=== PATIENT | female | born 2000 ===

== ENCOUNTER 2025-09-06 11:32 | Emergency (ER) | payer SELFPAY ==
--- NOTE | 2025-09-06 11:35 | ED_ITS ---
HPI - Female Genitourinary General Chief complaint: Urogenital-Female Stated complaint: Urinary Problem Time Seen by Provider: 09/06/25 11:34 Source: patient Mode of arrival: ambulatory Limitations: no limitations History of Present Illness HPI Narrative: Adelina is a 25 year old female patient presenting to the clinic today with c/o possible UTI. She reports she is having some burning with urination at the end of her stream, urinary frequency, white/yellow vaginal discharge with moldy odor. This has been going on and off x 1 year. LMP was August 12. No concern for or STI. Has not had intercourse for approx 1 month. Partner was transgender- female to male. States they used toys. denies any fevers, chills, body aches. She has recently changed her detergents. History of ovarian cyst. Related Data Allergies Allergy/AdvReac Type Severity Reaction Status Date / Time lactose Allergy Intermediate Abdominal Verified 09/06/25 11:46 Pain Review of Systems Review of Systems: Pertinent positives per HPI. Patient denies any fever, chills, rash, headache, visual changes, dizziness, cough, shortness of breath, chest pain, palpitations, nausea, vomiting, diarrhea, constipation, abdominal pain PMFSH Comments At the time of my signature, I reviewed and agree with the nursing past medical, surgical, social, and family history. There is no relevant family history pertinent to the patient complaint. Exam Narrative: General: Well-developed, well nourished, in no apparent distress. Head: Normocephalic, atraumatic. Cardio: Regular rate and rhythm, s1 and s2 normal, no murmur appreciated. Resp: Clear to auscultation bilaterally, no rhonchi, rales, wheezing or rubs. Abdomen: Soft, pliable, bowel sounds present in all quadrants, suprapubic abdomen tender to palpation, no organomegly, left CVAT tenderness. Course Course Emergency Course: Portions of this record may have been created with voice recognition software. Level of Care: Express Care Visit Vital Signs Vital signs: Vital Signs Temperature 37.3 C 09/06/25 11:41 Pulse Rate 82 09/06/25 11:41 Respiratory Rate 16 09/06/25 11:41 Blood Pressure 149/88 H 09/06/25 11:41 Pulse Oximetry 100 09/06/25 11:41 Oxygen Delivery Room Air 09/06/25 11:41 Temperature 37.3 C 09/06/25 11:41 Pulse Rate 82 09/06/25 11:41 Respiratory Rate 16 09/06/25 11:41 Blood Pressure 149/88 H 09/06/25 11:41 Pulse Oximetry 100 09/06/25 11:41 Oxygen Delivery Room Air 09/06/25 11:41 Vital signs reviewed MDM - Female Genitourinary MDM Narrative Medical decision making narrative: At the time of visit patient is resting comfortably on the exam table. Patient appears to be nontoxic. C/o possible UTI. She reports she is having some burning with urination at the end of her stream, urinary frequency, white/yellow vaginal discharge with moldy odor. This has been going on and off x 1 year. LMP was August 12. No concern for or STI. Has not had intercourse for approx 1 month. Partner was transgender- female to male. States they used toys. Denies any fevers, chills, body aches. She has recently changed her detergents. History of ovarian cyst in the past. On exam patient has soft, pliable, nondistended abdomen with mild suprapubic tenderness and left-sided lower back tenderness, bowel sounds present all 4 quadrants, no organomegaly Labs: Urinalysis shows trace of protein. Negative for leukocytes or blood. Plan: I suspect patient has bacterial vaginosis. Patient does not have any insurance so she does not wish to have further testing at this time. Will send in prescription for Metrogel.Supportive measures were discussed with the patient and they voiced understanding discharge instructions and agrees to treatment plan. Return precautions reviewed Differential Diagnosis Differential diagnosis: Likely urinary tract infection, bacterial vaginosis, trichomoniasis, cervicitis, ovarian cyst, vaginitis and cystitis Lab Data Labs: Lab Results 09/06/25 Range/Units 11:53 POC Urine Color Yellow POC Urine Clarity Clear POC Urine pH 6.5 POC Ur Specif [place] 1.025 POC Urine Protein Trace (Negative) POC Ur Glucose (UA) Negative (Negative) POC Urine Ketones Negative (Negative) POC Urine Blood Negative (Negative) POC Urine Nitrite Negative (Negative) POC Urine Bilirubin Negative (Negative) POC Urine Urobilinogen 0.2 POC U Leukocyte Esteras Negative (Negative) Discharge Plan Discharge Clinical Impression: Bacterial vaginosis Patient Disposition: Home Condition: Stable Instructions: Antibiotic Form, Bacterial Vaginosis (ED) Additional Instructions: Urine shows no sign of infection Take metronidazole as prescribed Increase fluids and stay well hydrated. May take tylenol/motrin for pain. May use OTC monistat as needed for vaginal yeast infection Avoid intercourse until infection resolved. Follow up with your PCP in 5-7 days if symptoms worsen Patient Language: Portuguese Prescriptions: New metronidazole [Vandazole] 0.75 % (37.5mg/5 gram) gel 1 appful vaginal HS 5 Days Qty: 70 0RF Follow-up/Referrals: UNKNOWN,DOCTOR [Non-Staff] Time of Disposition: 12:00 Quality NIHSS Nursing Documentation ED NIHSS nursing documentation: reviewed/agree
--- OUTSIDE RECORDS SUMMARY | 2025-09-06 11:35 | XMS_ITS | Clinical Summary ---
Author Organization [facility] Address [address] [place] [address] Care Team Providers Care Therapist Radiation Name Role Phone Jamari Espinal MD Primary Care Provider + Allergies Active Allergy Reactions Criticality Noted Date Comments Lactase Other (See comments) Low 12/26/2017 Stomach irritation and pain Medications lamoTRIgine (LaMICtal) 100 mg tabletIndicatio ns:Bipolar affective disorder, currently depressed, moderate (HCC) Take 0.5 tablets (50 mg total) by mouth daily for 14 days, THEN 1 tablet (100 mg total) daily for 14 days. 21 tablet 3 Active propranoloL (INDERAL) 10 mg tabletIndicatio ns:Palpitations ,Anxiety TAKE 1/2 TO 1 TABLET(5 TO 10 MG) BY MOUTH THREE TIMES DAILY NEEDED FOR ANXIETY 90 tablet 3 Active Additional Information Patient taking differently: 10 mg oral 3 times daily PRN, anxiety, Just as needed, Indications: anxiety, Informant: Self, Reported on 01/15/2024 ARIPiprazole (ABILIFY) 20 mg tabletIndicatio ns:Bipolar affective disorder, currently depressed, moderate (HCC) Take 1 tablet (20 mg total) by mouth daily 90 tablet 1 3 Active Additional Information Patient taking differently:20 mg oralDaily (early AM), Indications: Bipolar Disorder, Depression Treatment Adjunct, Informant: Self, Reported on 01/15/[address] (Cymbalta) 60 mg capsuleIndicati ons:Bipolar affective disorder, currently depressed, moderate (HCC),Anxiety Take 1 capsule (60 mg total) by mouth daily 90 capsule 1 3 Active Additional Information Patient taking differently:60 mg oralDaily (early AM), Indications: Anxiety with Depression, Informant: Self, Reported on 01/15/2024 aspirin 81 mg enteric coated tablet Take 1 tablet (81 mg total) by mouth daily For 30 days 4 Active Active Problems Problem Noted Date Diagnosed Date AVNRT (AV mellisa re-entry tachycardia) 01/18/2024 Nicotine use 01/18/2024 Assessment & Plan (01/18/2024 9:09 PM CDT): Vapes approx 1/2PPD equivalent in nicotine. 14mcg nicotine patch while inpatient. SVT (supraventricular tachycardia) 12/07/2023 Assessment & Plan (01/19/2024 10:02 AM CDT): Identified on event monitor. Underwent AVNRT ablation without reported complication. No complications noted overnight - EP recs: bedrest until 2029, no EP indication for propanolol but OK as anxiety PRN, tele - EP saw this morning, start aspirin 81mg daily for 30 days Anxiety 06/08/2023 Assessment & Plan (06/08/2023 3:38 PM CDT): Patient plans to establish with psychiatry to restart medications. Resources provided. Depression, major, recurrent 06/08/2023 Assessment & Plan (06/08/2023 3:38 PM CDT): Patient plans to establish with psychiatry to restart medications. Resources provided. Sacroiliac joint dysfunction of both sides 04/04 Bipolar disorder 09/04/2016 Assessment & Plan (01/18/2024 9:14 PM CDT): Pt reports multiple psychiatric diagnoses including Bipolar disorder, ADHD, anxiety, depression. - Cont home Abilify, Kangmbalta, Lamictal Assessment & Plan (06/08/2023 3:38 PM CDT): Patient plans to establish with psychiatry to restart medications. Resources provided. Immunizations Immunization Administration Dates Next Due DTaP 04/22/2003 HPV, Quadrivalent 12/03/2012,07/31/2012,05/29/20 12 Hep A, Unspecified 05/16/2008,01/12/2007 Hep B, Unspecified 05/18/1999,1998 HiB 1998 IPV 04/22/2003 MMR 04/22/2003,05/18/1999 Meningococcal ACWY, Unspecified 06/02/2014 Meningococcal MCV4P (Menactra) 05/11/2009 Polio, Unspecified 03/17/2000,1998, 998 Tdap 05/16/2008 Varicella 01/12/2007,05/18/1999 Surgical History Surgery Date Site/Laterality Comments WISDOM TOOTH EXTRACTION CARDIAC ELECTROPHYSIOLOGY MA PPING AND ABLATION 12/29/2023 - 01/28/2024 Medical History Medical History Date Comments Motion sickness SVT (supraventricular tachycardia) Family History Medical History Relation Name Comments Atrial fibrillation Mother Bipolar disorder Mother Hypertension Mother Pathological gambling Mother's Brother Substance Abuse Mother's Brother opioids Schizophrenia Mother's Sister Depression Other multiple matern al family members Substance Abuse Other multiple mat ernal family members Anesthesia problems Neg Hx Relation Name Status Comments Mother Mother's Brother Alive Mother's Sister Alive Other Social History Tobacco Use Types Packs/Day Years Used Date Smoking Tobacco: Never Smokeless Tobacco: Never Tobacco Cessation:Counseling Given: Not Answered Alcohol Use Standard Drinks/Week Comments No 0 (1 standard drink = 0.6 oz pur e alcohol) AUDIT-C Answer Date Recorded Q1: How often do you have a drink containing alcohol? Never 01/15/2024 Q2: How many drinks containi ng alcohol do you have on a typical day when you are drinking? Patient does not drink Q3: How often do you have si x or more drinks on one occasion? Never 01/15/2024 PHQ-2 Answer Date Recorded PHQ-2 Total Score (If total score is 3 or more points, staff should administer the PHQ-9) 3 06/08/2023 Personal Safety Answer Date Recorded Have you ever been in or are you currently in a harmful physical or emotional relationship or is someone making you feel afraid or unsafe? Denies 01/17/2025 Comments No Sex and Gender Information Value Date Recorded Sex Assigned at Not on file Legal Sex Female 3:13 AM SALESPERSON FURS Gender Identity Female 10/11/2023 7:49 AM SALESPERSON FURS Sexual Orientation Bisexual 10/11/2023 7: 49 AM SALESPERSON FURS Obstetrics History Para Term AB IAB SAB Ectopic Multiple Livin g Live Births 0 0 0 0 0 0 0 0 0 0 0 Last Filed Vital Signs Vital Sign Reading Time Taken Comments Blood Pressure 95/45 01/18/2025 3:15 AM CDT Pulse 72 01/18/2025 3:15 AM CDT Temperature 37.2 C (98.9 F) 01/17/2025 10:15 PM CDT Respiratory Rate 18 01/18/2025 3:15 AM CDT Oxygen Saturation 97% 01/18/2025 3:15 AM CDT Inhaled Oxygen Concentration - - Weight 45.4 kg (100 lb) 01/17/2025 10:15 PM CDT Height 167.6 cm (5' 6) 01/17/2025 10:15 PM CDT Body Mass Index 16.14 01/17/2025 10:15 PM CDT Plan of Treatment Health Maintenance Due Date Last Done Comments Cervical Cancer Screening 1998 Hepatitis C Screening 1998 DTaP/Tdap/Td Vaccine (7 - Td or Tdap) 05/16/2018 05/16/2008, 04/22/2003, 03/17/2000, Additional history exists Depression Screening 06/08/2024 06/08/2023, 09/14/20 18 Regular Well Visit/Exam 18-64 06/08/2024 06/08/2023, 09/14/2018 Influenza Vaccine (#1) 2025 Hepatitis B Screening Completed 05/18/1999 , 1998, 1998 Varicella Vaccines Completed 01/12/2007, 05/18/1999 HPV Vaccines Completed 12/03/2012, 11/2011, 05/29/2012 Pneumococcal vaccine <65 Aged Out No longer eligible based on patient's age to complete this topic Medical Devices Implanted Type Area Geospatial Technician Device Identifier Shelf Expiration Date Model / Serial / Lot [employer]in [employer] Device Closure Vascade Od5 Fr Femoral Artery [id number] - [id number] Implanted:Qty: 1 on 01/18/2024 by Antonino Torres MD at [facility] Vascular Closure Device [employer] 09/12/2025 [id number] / / [id number] [employer] Device Closure Vascade Od5 Fr Femoral Artery [id number] - [id number] Implanted:Qty: 1 on 01/18/2024 by Antonino Torres MD at [facility] Vascular Closure Device [employer] 09/12/2025 [id number] / / [id number] [employer] Device Vascular Closure Femoral Artery Bioabsorbable Dual Method Vascade 6-7fr Collagen [id number] - [id number] Implanted:Qty: 1 on 01/18/2024 by Antonino Torres MD at [facility] Vascular Closure Device [employer] 08/03/2025 [id number] / / [id number] [employer] Vascade Mvp 6-12fr Venous Closure [id number] - [id number] Implanted:Qty: 1 on 01/18/2024 by Antonino Torres MD at [facility] Vascular Closure Device [employer] 08/21/2025 [id number] / / [id number] [place] [address] [address] BLUE ACCESS OOS [employer] [place] [address] [address] Advance Directives For more information, please contact: [phone] * Full Code (Latest Code Status on File) Date Activated Date Inactivated Comments 01/18/2024 7:48 PM 01/19/2024 2:42 PM Care Teams Therapist Radiation Relationship Specialty Start Date End Date Jamari Espinal MD [address] [place] [address] DR Lawrence BILL [address] [place] [id number] PCP - General Internal Medicine 06/08/23
--- OUTSIDE RECORDS SUMMARY | 2025-09-06 11:35 | XMS_ITS | Patient Health Record ---
Author Organization [facility] Address [address] [facility] [address] [place] [address] Care Team Providers Care Executive Advisor Name Role Phone Josué Mccormick Unavailable [phone] Reason For Referral No Information Medications Medication SIG (Take, Route, Frequency, Duration) Notes Start Date End Date Status Escitalopram Oxalate 5 MG Tablet Oral 02/08/2022 Active Vraylar 1.5 mg Capsule Oral 02/08/2022 Active Social History Social History Additional Details Category Social Info Options Details Migrated Social History Migrated Social History Alcohol Intake: None 09/30/2021,Tobacco Years: Never smoker 09/30/2021 Plan Of Treatment No Information Insurance Providers Payer Name Payer Address Payer Phone Subscriber Number Group Number Insured Name Patient Relationship to Insured Coverage Start Date Coverage End Date [facility] [address] [place] [address] [id number] CAROLINE PRUITT Spouse - patient is the spouse of the insured
--- OUTSIDE RECORDS SUMMARY | 2025-09-06 11:37 | XMS_ITS | Clinical Summary ---
Author Organization [facility] Address [address] [place] [address] Phone Care Team Providers Care Health Club Manager Name Role Phone Unavailable Primary Care Provider Unavailabl e Allergies Active Allergy Reactions Criticality Noted Date Comments Lactose Nausea 01/31/2019 Medications DULOXETINE HCL PO Take by mouth. Activ e lamoTRIgine (LAMICTAL) 100 MG Tablet Take 100 mg by mouth daily. Active Fluticasone Propionate (FLONASE NA) by Nasal route. A ctive Biotin 96103 MCG Tablet Take by mouth. Acti ve tiZANidine 4 MG CapsuleIndicati ons:Acute bilateral low back pain with bilateral sciatica Take 1 Cap by mouth every 8 hours as needed for Muscle spasms. 90 Cap 9 Active Additional Information Patient not taking.Reported on 07/06/2022 Escitalopram Oxalate 5 MG Tablet Take 5 mg by mouth daily. Active Cariprazine HCl (Vraylar) 1.5 MG Capsule Take by mouth. Acti ve mirtazapine (REMERON) 15 MG Tablet Take 15 mg by mouth nightly. Active Active Problems Problem Noted Date Diagnosed Date Sacroiliac joint dysfunction of both sides 04/04 Lumbar radiculopathy 04/04/2019 Immunizations Immunization Administration Dates Next Due DTAP VACCINE, UNSPECIFIED FORMULATION ,03/17/2000,1998,08/31,1998 Hepatitis A Vaccine,unspecif ied Formulation 05/16/2008,01/12/2007 Hepatitis B Vaccine,unspecif ied Formulation 05/18/1999,1998,1998 Hib Vaccine,unspecified Formulation 02/27,1998,1998,07/03 Human Papillomavirus Vaccine (HPV), quadrivalent 12/03/2012,07/31/2012,05/29/2012 Inactivated Polio Vaccine 04/22/2003 MMR Vaccine 04/22/2003,05/18/1999 Meningococcal Vaccine 05/11/2009 Meningococcal Vaccine, Unspe cified Formulation 06/02/2014 Polio Vaccine,unspecified Formulation 03/17/2000 ,1998,1998 TDAP Vaccine 05/16/2008 Varicella Vaccine Live 01/12/2007,05/18/1999 Family History Relation Name Status Comments Father Alive Mother Alive Social History Tobacco Use Types Packs/Day Years Used Date Smoking Tobacco: Never Smokeless Tobacco: Never Tobacco Cessation:Counseling Given: No Alcohol Use Standard Drinks/Week Comments No 0 (1 standard drink = 0.6 oz pur e alcohol) PHQ-2 Answer Date Recorded PHQ-2 Score 0 07/16/2019 Comments No Sex and Gender Information Value Date Recorded Sex Assigned at Not on file Legal Sex Female 2:53 PM BRANCH SERVICE ASSOCIATE Gender Identity Not on file Sexual Orientation Not on file Last Filed Vital Signs Vital Sign Reading Time Taken Comments Blood Pressure 102/80 07/06/2022 9:12 AM CDT Pulse 79 07/06/2022 9:12 AM CDT Temperature 37.2 C (99 F) 07/06/2022 9:12 AM CDT Respiratory Rate 18 07/06/2022 9:12 AM CDT Oxygen Saturation 97% 07/06/2022 9:12 AM CDT Inhaled Oxygen Concentration - - Weight 62.1 kg (137 lb) 07/06/2022 9:12 AM CDT Height 170.2 cm (5' 7) 01/31/2019 11:16 AM CDT Body Mass Index 21.46 01/31/2019 11:16 AM CDT Plan of Treatment Health Maintenance Due Date Last Done Comments Hepatitis C Virus (HCV) Screening 1998 DTaP/Tdap/Td Immunization (7 - Td or Tdap) 05/16/2018 05/16/2008, 04/22/2003, 03/17/2000, Additional history exists Influenza Immunization (#1) 2025 SARS-COV-2 Immunization ( season) 2025 Respiratory Syncytial Virus (RSV) Immunization (Adult) (-dose 75+ series) 2073 Hepatitis B Immunization Completed 999, 1998, 1998 Human Papillomavirus (HPV) Immunization Completed 12/03/2012, 07/31/2012, 05/29/2012 Meningococcal Immunization (ACWY) Completed 06/02/2014, 05/11/2009 Pneumococcal Immunization Combined Aged Out No longer eligible based on patient's age to complete this topic Rotavirus Immunization Aged Out No lo nger eligible based on patient's age to complete this topic Insurance
[2025-09-06 11:41] VITALS: BP 149/88; PULSE 82; RESP 16; TEMP 37.3; O2SAT 100
[2025-09-06 11:55] LABS: EDUAAPPEAR Clear; EDUABILI Negative (Negative); EDUABLOOD Negative (Negative); EDUACOLOR1 Yellow; EDUAGLUCOSE Negative (Negative); EDUAKETONE Negative (Negative); EDUALEUKO Negative (Negative); EDUANITRATE Negative (Negative); EDUAPH 6.5; EDUAPROTEIN Trace (Negative); EDUASPGRAVITY 1.025; EDUAUROBILI 0.2
== END 2025-09-06 12:09 | disposition home or self-care (01) ==
PROVIDERS: Emergency Provider Nurse Practitioner Family
DX: N76.0 Acute vaginitis (principal)
CPT/HCPCS: 81003; 99213; G0463